=== PATIENT | female | born 1965 | race Caucasian/White ===

== ENCOUNTER 2017-05-29 11:09 | Emergency (ER) | payer BC, OTHER ==
[2017-05-29] MEDS ORDERED: Acetaminophen 500 MG TAB ONE (11:26)
[2017-05-29 11:40] LABS: Base Excess -0.3 mEq/L (-2 - +2); pH (venous) 7.43 (7.35-7.45)
[2017-05-29 11:41] LABS: Hemoglobin (Hb) 18.6 g/dL (11.7-16.0)
[2017-05-29 11:58] LABS: ALT (SGPT) 53 U/L (8-55); AST (SGOT) 98 U/L (5-34); Albumin 4.3 g/dL (3.5-5.0); Alkaline Phosphatase 106 U/L (40-150); Anion Gap 17 mmol/L (10-20); BUN (Urea Nitrogen) 6 mg/dL (7.0-18.7); Bilirubin, Total 0.6 mg/dL (0.2-1.2); Calc. Creatinine Clearance 0 mL/min (70-130); Calcium 9.2 mg/dL (7.8-10.44); Carbon Dioxide 23 mmol/L (22-29); Chloride 100 mmol/L (98-107); Estimated GFR-MDRD 89; Globulin 3.6 g/dL (2.4-3.5); Glucose 127 mg/dL (70-105); Potassium 3.3 mmol/L (3.5-5.1); Protein, Total 7.9 g/dL (6.0-8.3); Sodium 137 mmol/L (136-145)
[2017-05-29] MEDS ORDERED: Potassium Chloride 20 MEQ TAB ONE (12:03)
[2017-05-29 12:09] LABS: #Lymphocytes 0.4 thou/uL (1.20-3.40); #Monocytes 0.5 thou/uL (0.11-0.59); #Neutrophils 7.6 thou/uL (1.40-6.50); %Basophils 0.5 % (0.0-1.0); %Lymphocytes 4.6 % (21.0-51.0); %Monocytes 5.9 % (0.0-10.0); Hemoglobin 18.1 g/dL (12.0-16.0); Mean Corpuscular HGB CONC 34.5 g/dL (32.0-36.0); Mean Corpuscular Hemoglobin 33.6 pg (27.0-31.0); Mean Corpuscular Volume 97.6 fl (81.0-99.0); Mean Platelet Volume 7.4 fL (7.4-10.4); Platelet Count 94 thou/uL (130-400); RBC Distribution Width 11.3 % (11.5-14.5); Red Blood Cell (RBC) Count 5.39 mill/uL (4.20-5.40); White Blood Cell (WBC) Count 8.5 thou/uL (4.8-10.8)
[2017-05-29 12:15] LABS: PLT Morphology Comment DECREASED
[2017-05-29 12:30] LABS: CKMB 0.3 ng/mL (0-6.6); Troponin I Less than 0.010 ng/mL (< 0.028)
[2017-05-29 12:31] LABS: Bilirubin Small (Negative); Blood, Urine Moderate (Negative); Clarity Cloudy (Clear); Glucose, Urine (Dipstick) Negative (Negative); Leukocyte Negative (Negative); Nitrite Negative (Negative); Protein, Urine (Dipstick) 100 mg/dL (Neg-Trace); Specific Gravity, Urine 1.025 (1.005-1.030); Urobilinogen 0.2 mg/dL (0.2-1.0); pH, Urine 5.5 (5.0-9.0)
[2017-05-29 12:33] LABS: Pregnancy Test - Urine (BHCG) Negative (Negative); Pregu Control Background? CLEAR/WHITE (CLR/WHITE); Pregu Control Bar Appear? YES (CONTROL BAR); Specific Gravity 1.025 (1.002-1.036)
[2017-05-29 12:36] LABS: WBC/HPF 0-3 HPF (0-3)
[2017-05-29 12:37] LABS: Bacteria/HPF 2+ HPF (None Seen)
--- NOTE | 2017-05-29 13:37 | RAD ---
CHEST 2 VIEWS: Date: 05/29/17 Comparison is made with the 07/19/14 study. The heart is normal in size. There is no vascular congestion, edema, or pleural effusion. There is no lobar consolidation. Some of the lung markings in the left lung base are a little more prominent nissa n the right. This may or may not be significant as I see little change on the lateral view. Correlate with clinical exam and history. IMPRESSION: Equivocal prominence of left basilar markings. POS: HOME
== END 2017-05-29 12:57 | disposition home or self-care (01) ==
LOC: BURERS 11:09
DX: J11.1 Influenza due to unidentified influenza virus with other respiratory manifestations (principal); I10 Essential (primary) hypertension; F17.210 Nicotine dependence, cigarettes, uncomplicated
CPT/HCPCS: 36415; 71020; 80053; 81003; 81015; 81025; 82553; 82805; 84443; 84484; 85025; 87040; 87086; 93005; 96360

== ENCOUNTER 2017-10-06 14:45 | Outpatient (CLI) | payer OTHER ==
--- NOTE | 2017-10-06 21:45 | RAD ---
LEFT WRIST THREE VIEWS: 10/06/17 No fracture or carpal abnormality was seen. The carpal relationships are normal. The radiocarpal join t showed no acute change. A longitudinal line of the distal ulna appears to be a trabecular marking. IMPRESSION: No acute findings. POS: HOME
== END 2017-10-06 14:46 | disposition home or self-care (01) ==
LOC: BURRAD 14:45
PROVIDERS: ATTEND Family Medicine
DX: M25.532 Pain in left wrist (principal)

== ENCOUNTER 2023-02-04 11:01 | Outpatient (CLI) | payer BC | END 2023-02-04 11:02 | disposition home or self-care (01) | LOC: BURRAD 11:01 | PROVIDERS: ATTEND Family Medicine | DX: R39.9 Unspecified symptoms and signs involving the genitourinary system (principal); N28.89 Other specified disorders of kidney and ureter | CPT/HCPCS: 74018 ==